=== PATIENT | male | born 1965 | race Caucasian/White ===

== ENCOUNTER → 2017-03-25 | Day surgery (SDC) | payer OTHER ==
[~2017-03-25] VITALS: Ht 188 cm; Wt 111.0 kg
[~2017-03-25] MED LIST: 0.9% Sodium Chloride 1,000 ML IV SCH; CLOB15CR2 TP; MELO7.5O PO; METO50TA3 PO; OMEP20CA11 PO; Sodium Chloride LOK Flush 10 mL Syringe IV PRN; TEST100V4 IM; fentaNYL-PF 50 mCg/mL 2 mL Inj IVPUSH PRN
[2017-03-25 11:00] VITALS: BP 145/94; PULSE 70; RESP 16; O2SAT 97
--- NOTE | 2017-03-25 12:33 | PCM.ENDCOL ---
Colonoscopy Date of Service: Mar 25, 2017 Physician Ta Mcdonald MD Pre Procedure Diagnosis: Screening Post Procedure Dx & Findings: Polyp hemorrhoids diverticula Procedure Colonoscopy PROCEDURE IN DETAIL: Prep adequate Withdrawal time 16 minutes After unremarkable rectal examination the Olympus video colonoscope was inserted patient's anal canal and was advanced to cecum. Landmarks were identified including the ileocecal valve and appendiceal orifice. Scope was withdrawn systematically. Visualized colonic mucosa showed healthy shiny mucosa with normal healthy-appearing vasculature. In the sigmoid colon there was a 5 mm polyp which was removed completely using hot snare. In the rectum, there was a 1 mm polyp which was removed completely using cold forceps. In the sigmoid colon there a few small diverticuli. In the rectum retroflexion was done which showed hemorrhoids. Anal canal was inspected carefully on the way out and hemorrhoids noted. Impression Polyp 2 status post complete removal Diverticuli Hemorrhoids Recommendation Repeat colonoscopy 5 years Diverticular diet Presedation Assessment Risks and Benefits Informed consent was obtained from the patient after all risks and benefits including but not limited to drug reaction, infection, pain, bleeding, perforation, as well as alternatives were discussed. Patient monitoring Continuous pulse oximetry, cardiac monitoring, blood pressure monitoring, IV access, and oxygen at 2L per nasal cannula. Periprocedural Fentanyl: Fentanyl 100mcg Incrementally Midazolam: Midazolam 5mg Incrementally Complications There were no periprocedural complications identified. Post Procedure Plan Post Procedure Recommendations 1. Restrict activities today. 2. Resume normal activities in the morning. 3. Resume medications. 4. Patient informed of normal post procedure side effects as bloating, drowsiness, blood streaking in the stool. 5. average risk CRCS. If colon polyps come back as: -Hyperplastic- can repeat colonoscopy in 10 years -Tubular adenoma- repeat colonoscopy in 5 years -Tubulovillous/villous adenoma- repeat colonoscopy in 3 years -If any dysplasia- return to clinic as soon as possible 6. Please don't hesitate to call me with any questions. Ta Mcdonald MD Mar 25, 2017 12:33
[2017-03-25 12:38] VITALS: BP 142/74; RESP 17; O2SAT 95
[2017-03-25 12:48] VITALS: BP 130/80; RESP 17; O2SAT 97
[2017-03-25 12:59] VITALS: BP 125/79; RESP 17; O2SAT 97
--- NOTE | 2017-03-30 06:56 | PATH ---
SURGICAL PATHOLOGY Attending Physician:Ta Mcdonald M.D. CASE STATUS: Signed Out PATIENT NAME: RIYA ALVES PID: [id number] : 1965 DATE COLLECTED:03/25/2017 19:32 SPECIMEN: 1: Colon, Polyp 2: Rectum, Biopsy CLINICAL HISTORY: FAMILY HISTORY COLON POLYP, SCREENING, COLON POLYPS 1). SIGMOID POLYP 2). RECTAL POLYP FINAL DIAGNOSIS: 1. Sigmoid Colon, Polyp, Biopsy: Tubular adenoma. 2. Rectum, Polyp, Biopsy: Hyperplastic polyp. ICD10: D12.5 K62.1 GROSS DESCRIPTION: The specimen is received in two formalin filled containers labeled with the patient's name. 1). The specimen is labeled "sigmoid polyp" and consists of a 0.3 x 0.3 x 0.3 CM portion of tissue which is entirely submitted in cassette 1A. 2). The specimen is labeled "rectal polyp" and consists of a 0.2 x 0.2 x 0.2 CM portion of tissue which is entirely submitted in cassette 2A. 03/25/2017DC 03/25/2017DC ICD-9 CODES: CPT CODES: 1: 96766 2: 89927 Electronically Signed Out Alba Rai MD [facility] [address], [place] [address] Technical component performed at [facility], [address] [place] [address] [address], [place], [address]
== END | disposition home or self-care (01) ==
LOC: END 00:55
PROVIDERS: ATTEND Internal Medicine
DX: Z12.11 Encounter for screening for malignant neoplasm of colon (principal); D12.5 Benign neoplasm of sigmoid colon; K62.1 Rectal polyp; K57.30 Diverticulosis of large intestine without perforation or abscess without bleeding; K64.8 Other hemorrhoids; G47.33 Obstructive sleep apnea (adult) (pediatric); I49.3 Ventricular premature depolarization; K21.9 Gastro-esophageal reflux disease without esophagitis
CPT/HCPCS: 45380; 45385; 99153; G0500; J2250; J3010; J7030